=== PATIENT | female | born 1985 | race Caucasian/White ===

== ENCOUNTER → 2016-07-09 | Outpatient (CLI) | payer OTHER ==
[~2016-07-09] VITALS: Ht 170.2 cm; Wt 127.0 kg
[~2016-07-09] MED LIST: DOCUSATE SODIU100 MG PO; FERROUS SULFAT325 MG PO; MOTRIN600 MG PO; ONE DAILY FOR1 EAC1 PO; PRENATAL TABLE1 EACH PO; TAMIFLU75 MG PO; TUMS500 MG PO; TYLENOL EXTRA500 MG PO; TYLENOL REGULA325 MG PO
[2016-07-10 10:10] LABS: INTERNAL CONTROL VALID? YES
== END | disposition home or self-care (01) ==
LOC: AMB 14:30
PROVIDERS: Anesthesiology
PROC: 0DJ08ZZ Inspection of Upper Intestinal Tract, Via Natural or Artificial Opening Endoscopic (ICD-10-PCS; principal; 2016-07-09)
DX: K29.70 Gastritis, unspecified, without bleeding (principal); K21.9 Gastro-esophageal reflux disease without esophagitis; E66.01 Morbid (severe) obesity due to excess calories; Z68.41 Body mass index [BMI] 40.0-44.9, adult; Z87.891 Personal history of nicotine dependence
CPT/HCPCS: 84703

== ENCOUNTER 2016-07-31 06:44 | Inpatient (IN) | payer OTHER ==
[~2016-07-31] VITALS: Ht 170.2 cm; Wt 127.0 kg
[2016-07-31 07:26] VITALS: BP 114/59
[2016-07-31 08:21] LABS: POINT-OF-CARE METER ID UU14174212; POINT-OF-CARE USER ID AHSRSCSLC11
[2016-07-31 13:15] VITALS: BP 140/80
[2016-07-31 20:04] VITALS: BP 127/67
[2016-07-31 23:12] VITALS: BP 125/70
[2016-08-01 03:18] VITALS: BP 137/86
[2016-08-01 07:00] VITALS: BP 128/79
[2016-08-01 07:02] LABS: HEMATOCRIT 36.2 % (36.0-46.0); MCH 27.7 PG (29.0-34.0); MCHC 32.9 G/DL (30.0-36.0); MCV 84.4 FL (83-99); MEAN PLAT.VOLUME 10.7 uM^3 (9.5-12.4); PLATELET COUNT 229 K/uL (156-360); RBC DIS.WIDTH-CV 13.1 % (11.8-14.6); RBC DIS.WIDTH-SD 40.5 % (39-53); RED BLOOD COUNT 4.29 M/uL (3.80-5.20)
[2016-08-01 07:05] LABS: WHITE BLOOD COUNT 9.6 K/uL (4.1-10.2)
[2016-08-01 07:15] LABS: ANION GAP 11 MEQ/L (2-14); CHLORIDE 104 MEQ/L (99-109); GFR ESTIMATE (CALCULATED) > 59 mL/min/; GLUCOSE 96 mg/dL (70-99); MAGNESIUM 1.8 mg/dl (1.3-2.7); POTASSIUM 4.3 MEQ/L (3.7-5.4); SAMPLE HEMOLYSIS CHECK 0; SAMPLE ICTERIC CHECK 0; SAMPLE LIPEMIA CHECK 0; SODIUM 138 MEQ/L (136-147); UREA NITROGEN (BUN) 13 mg/dL (9-23)
[2016-08-01] MEDS ORDERED: HYDROCODON-ACE1 EAC7 PO (08:28)
[2016-08-01 10:58] VITALS: BP 121/62
[2016-08-02] MEDS ORDERED: COLACE100 MG PO (12:27)
== END 2016-08-01 16:42 | disposition home or self-care (01) | DRG 621 ==
LOC: 2SOUTH 06:44 → 2EAST 12:43 → SDC 13:43 → EDSTATUS 13:43 → 2SOUTH 13:44 → 2EAST 08-01 16:42
PROVIDERS: Surgery
PROC: 0DB64Z3 Excision of Stomach, Percutaneous Endoscopic Approach, Vertical (ICD-10-PCS; principal; 2016-07-31)
DX: E66.01 Morbid (severe) obesity due to excess calories (principal); Z68.42 Body mass index [BMI] 45.0-49.9, adult; K21.9 Gastro-esophageal reflux disease without esophagitis; Z91.013 Allergy to seafood; Z87.891 Personal history of nicotine dependence
CPT/HCPCS: 80048; 82948; 83735; 84100; 85027; C9113; J0330; J0690; J1100; J1170; J1644; J1650; J1815; J1885; J2250; J2270; J2405; J2550; J2710; J2765; J3010; J3480; J7120; S0020

== ENCOUNTER 2016-08-02 11:41 | Emergency (ER) | payer OTHER ==
[~2016-08-02] VITALS: Ht 170.2 cm; Wt 129.0 kg
[~2016-08-02 11:41] MED LIST changes: +HYDROCODON-ACE1 EAC7 PO
[2016-08-02] MEDS ORDERED: COLACE100 MG PO (12:27)
[2016-08-02 12:36] VITALS: BP 112/77
== END 2016-08-02 12:36 | disposition home or self-care (01) ==
LOC: EME 11:41
DX: M79.605 Pain in left leg (principal); Z87.891 Personal history of nicotine dependence
CPT/HCPCS: 99281; 99284

== ENCOUNTER 2017-08-27 08:31 | Day surgery (SDC) | payer OTHER ==
[~2017-08-27] VITALS: Ht 170.2 cm; Wt 89.8 kg
[~2017-08-27 08:31] MED LIST changes: +COLACE100 MG PO
[2017-08-27 10:30] VITALS: BP 96/60
[2017-08-27] MEDS ORDERED: DILAUDID4 MG PO (14:09)
[2017-08-27] MEDS ORDERED: ONDANSETRON HCL8 MG PO (14:09)
[2017-08-27] MEDS ORDERED: COLACE100 MG PO (14:09)
[2017-08-27 14:35] VITALS: BP 122/52
[2017-08-27 15:40] VITALS: BP 105/63
== END 2017-08-27 16:00 | disposition home or self-care (01) ==
LOC: SDC 08:31
PROC: 0FT44ZZ Resection of Gallbladder, Percutaneous Endoscopic Approach (ICD-10-PCS; principal; 2017-08-27)
DX: K80.10 Calculus of gallbladder with chronic cholecystitis without obstruction (principal); K66.0 Peritoneal adhesions (postprocedural) (postinfection); K21.9 Gastro-esophageal reflux disease without esophagitis; Z87.891 Personal history of nicotine dependence; Z98.84 Bariatric surgery status
CPT/HCPCS: 84702; 88304; J0131; J0330; J0690; J1100; J1170; J1885; J2250; J2405; J2710; J7643; Q0175